=== PATIENT | male | born 1985 ===

== ENCOUNTER 2021-01-08 20:20 | Emergency (ER) | payer SELFPAY ==
[~2021-01-08] VITALS: Ht 160 cm; Wt 94.5 kg
--- NOTE | 2021-01-08 21:18 | NUR ---
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
[2021-01-08 21:43] VITALS: BP 167/94
== END 2021-01-08 21:55 | disposition home or self-care (01) ==
LOC: ED 21:00
DX: F41.1 Generalized anxiety disorder (principal); F15.129 Other stimulant abuse with intoxication, unspecified; Z72.9 Problem related to lifestyle, unspecified; I10 Essential (primary) hypertension
CPT/HCPCS: 99283